=== PATIENT | female | born 1975 | race Caucasian/White ===

== ENCOUNTER 2024-08-01 08:14 | Emergency (ER) | payer SELFPAY ==
[~2024-08-01] VITALS: Ht 170.2 cm; Wt 59.9 kg
[2024-08-01] MEDS: SODIUM CHLORIDE 0.9% 1000ML 1,000 ML IV SCH (09:11)
[2024-08-01] MEDS: KETOROLAC TROMETHAMINE 30 MG/ML VIAL IV STA (09:11)
[2024-08-01] MEDS: FENTANYL CITRATE/PF 100MCG/2 ML INJ IV ONE (09:11)
[2024-08-01] MEDS: ONDANSETRON HCL INJ 2MG/ML 2ML 2 MG/ML VIAL IV STA (09:12)
[2024-08-01 09:49] LABS: BASOPHILS # (AUTO) 0.1 (0.0-0.1); BASOPHILS % 1.4 % (0.0-1.0); EOSINOPHILS # (AUTO) 0.1 (0.0-0.4); EOSINOPHILS % 2.2 % (0.0-6.0); HEMATOCRIT 35.3 % (34.2-44.1); HEMOGLOBIN 12.7 g/dL (12.0-16.0); LYMPHOCYTES # (AUTO) 1.7 (1.0-3.2); LYMPHOCYTES % 34.6 % (18.0-39.1); MEAN CORPUSCULAR HEMOGLOBIN 31.9 pg (28-32); MEAN CORPUSCULAR VOLUME 88.7 fL (81-99); MONOCYTES # (AUTO) 0.4 (0.2-0.8); MONOCYTES % 7.6 % (4.4-11.3); NEUTROPHILS # (AUTO) 2.7 (2.1-6.9); NEUTROPHILS % 53.8 % (38.7-80.0); PLATELET COUNT 351 x10e3/uL (140-360); RED BLOOD COUNT 3.98 x10e6/uL (3.6-5.1); RED CELL DISTRIBUTION WIDTH 11.5 % (11.7-14.4); WHITE BLOOD COUNT 5.03 x10e3/uL (4.8-10.8)
[2024-08-01 10:04] LABS: ALBUMIN 4.2 g/dL (3.5-5.0); ALBUMIN/GLOBULIN RATIO 1.5 (0.8-2.0); ANION GAP 12.8 mmol/L (8-16); BILIRUBIN,TOTAL 1.5 mg/dL (0.2-1.2); CALCIUM 9.6 mg/dL (8.4-10.2); CREATININE, SERUM 0.84 mg/dL (0.57-1.11); POTASSIUM 3.8 mmol/L (3.5-5.1)
[2024-08-01] MEDS ORDERED: KETOROLAC TROME10 MG PO (10:18)
[2024-08-01] MEDS ORDERED: ULTRAM 50MG50 MG PO (10:19)
[2024-08-01] MEDS ORDERED: ONDANSETRON ODT4 MG PO (10:19)
[2024-08-01 10:52] VITALS: PULSE 68; RESP 16; TEMP 98; O2SAT 100
== END 2024-08-01 11:02 | disposition home or self-care (01) ==
LOC: ER 08:21
DX: R31.9 Hematuria, unspecified (principal); N20.0 Calculus of kidney; R10.32 Left lower quadrant pain
CPT/HCPCS: 36415; 74176; 80053; 84702; 85025; 99284; J1885; J2405; J3010; J7030